=== PATIENT | male | born 1975 ===

== ENCOUNTER 2023-08-03 07:11 | Outpatient (CLI) | payer OTHER | END 2023-08-03 07:24 | disposition home or self-care (01) | LOC: SONOGRAMA 07:11 | PROVIDERS: ATTEND Internal Medicine | DX: J44.1 Chronic obstructive pulmonary disease with (acute) exacerbation (principal); E04.2 Nontoxic multinodular goiter ==

== ENCOUNTER 2023-08-18 07:22 | Outpatient (CLI) | payer OTHER | END 2023-08-18 07:50 | disposition home or self-care (01) | LOC: TOM 07:22 | PROVIDERS: ATTEND Internal Medicine | DX: R10.9 Unspecified abdominal pain (principal) ==

== ENCOUNTER 2023-09-07 07:10 | Outpatient (CLI) | payer OTHER | END 2023-09-07 07:17 | disposition home or self-care (01) | LOC: MRI 07:10 | PROVIDERS: ATTEND Internal Medicine | DX: K76.89 Other specified diseases of liver (principal) | CPT/HCPCS: 72196; 74182 ==